=== PATIENT | female | born 1975 | race African-American/Black ===

== ENCOUNTER 2022-09-13 20:29 | Emergency (ER) | payer MEDICAID ==
[~2022-09-13] VITALS: Ht 167.6 cm; Wt 73.4 kg
[2022-09-14 00:50] VITALS: BP 150/88
== END 2022-09-14 00:50 | disposition home or self-care (01) ==
LOC: ER 20:29
DX: I10 Essential (primary) hypertension (principal)
CPT/HCPCS: 93005; 99283